=== PATIENT | female | born 1985 | race Caucasian/White ===

== ENCOUNTER 2019-02-05 13:29 | Inpatient (IN) | payer OTHER ==
[2019-02-05] MEDS ORDERED: LIDOCAINE 1% (MPF) 30 ML INJ INJ (14:00)
[2019-02-05] MEDS ORDERED: MISOPROSTOL 200 MCG TAB PR (14:00)
[2019-02-05] MEDS ORDERED: METHYLERGONOVINE 0.2 MG INJ IM (14:00)
[2019-02-05] MEDS ORDERED: CARBOPROST 250 MCG INJ IM (14:00)
[2019-02-05] MEDS ORDERED: OXYTOCIN 30 UNITS/LR 500 ML IV (14:00)
[2019-02-05] MEDS ORDERED: IBUPROFEN 600 MG TAB PO (14:00)
[2019-02-05 15:24] LABS: ADD MAN DIFF? NO
[2019-02-05 15:28] LABS: WHITE BLOOD COUNT 10.4 10^3/ul (4.8-10.8)
[2019-02-05 15:28] LABS: BASOPHIL # 0.1 10^3/ul (0.0-0.1); BASOPHILS % 0.5 % (0.0-2.0); EOSINOPHILS # 0.1 10^3/ul (0.0-0.5); EOSINOPHILS % 0.5 % (0.0-7.0); HEMATOCRIT 33.6 % (37.0-47.0); HEMOGLOBIN 10.7 g/dl (12.0-16.0); LYMPHOCYTES # 3.1 10^3/ul (0.8-2.9); LYMPHOCYTES % 29.7 % (15.0-51.0); MEAN CORPUSCULAR HEMOGLOBIN 26.5 pg (29.0-33.0); MEAN CORPUSCULAR HGB CONC 31.8 g/dl (32.0-37.0); MEAN CORPUSCULAR VOLUME 83.2 fl (82.0-101.0); MEAN PLATELET VOLUME 9.7 fl (7.4-10.4); MONOCYTE # 0.4 10^3/ul (0.3-0.9); MONOCYTES % 3.9 % (0.0-11.0); NEUTROPHIL # 6.7 10^3/ul (1.6-7.5); NEUTROPHILS % 64.7 % (39.0-77.0); PLATELET COUNT 206 10^3/UL (140-415); RED BLOOD COUNT 4.04 10^6/ul (4.20-5.40)
[2019-02-05 15:56] LABS: INR 0.92; PARTIAL THROMBOPLASTIN TIME 26.1 Sec (23.0-35.0); PROTIME 12.5 Sec (11.9-14.9)
[2019-02-05] MEDS: LACTATED RINGER'S 1,000 ML IV ×2 (17:01→21:05)
[2019-02-05 18:03] LABS: HEPATITIS B SURFACE ANTIGEN NEGATIVE (NEGATIVE)
[2019-02-05] MEDS ORDERED: MINERAL OIL LIGHT 10 ML VIAL TOP (20:30)
[2019-02-05] MEDS: OXYTOCIN 30 UNITS/LR 500 ML IV (22:24)
[2019-02-06] MEDS: RANITIDINE 150 MG TAB PO ×2 (04:30→20:39)
[2019-02-06] MEDS: LACTATED RINGER'S 1,000 ML IV ×3 (05:47→11:03)
[2019-02-06] MEDS ORDERED: ROPIVACAINE 0.2% 100 ML (08:12)
[2019-02-06] MEDS ORDERED: ONDANSETRON 4 MG INJ IV (08:30)
[2019-02-06] MEDS ORDERED: DIPHENHYDRAMINE 50 MG INJ IV (08:30)
[2019-02-06] MEDS ORDERED: NALOXONE (0.4 MG/ML) INJ IV (08:30)
[2019-02-06] MEDS: FENTAnyl 2MCG/ML-ROPIV 0.2% 100 ML BAG EPI (11:50)
[2019-02-06] MEDS ORDERED: DEXTROSE 5%-LR 1,000 ML IV (12:00)
[2019-02-06] MEDS: OXYTOCIN 30 UNITS/LR 500 ML IV ×3 (14:14→18:17)
[2019-02-06] MEDS: LANOLIN HPA 1 PKT TOP (16:21)
[2019-02-06] MEDS: WITCH HAZEL/GLYCERIN PAD PR (16:21)
[2019-02-06] MEDS: BENZOCAINE 20% 56 ML SPRAY TOP (16:21)
[2019-02-06] MEDS ORDERED: MISOPROSTOL 200 MCG TAB PR (16:30)
[2019-02-06] MEDS ORDERED: OXYTOCIN 30 UNITS/LR 500 ML IV (16:30)
[2019-02-06] MEDS ORDERED: METHYLERGONOVINE 0.2 MG INJ IM (16:30)
[2019-02-06] MEDS ORDERED: OXYCODONE/ASPIRIN (4.88/325) TAB PO ×2 (16:30)
[2019-02-06] MEDS ORDERED: ZOLPIDEM 5 MG TAB PO (16:30)
[2019-02-06] MEDS ORDERED: CARBOPROST 250 MCG INJ IM (16:30)
[2019-02-06] MEDS: IBUPROFEN 600 MG TAB PO ×2 (17:24→23:36)
[2019-02-06] MEDS ORDERED: AMPICILLIN 2 GM/NS (PMX) 100 ML IV (18:30)
[2019-02-06] MEDS: SENNA/DOCUSATE NA (8.6MG/50MG) TAB PO (20:39)
[2019-02-06] MEDS ORDERED: AMPICILLIN 1 GM/NS (PMX) 50 ML IV (22:30)
[2019-02-07] MEDS: IBUPROFEN 600 MG TAB PO ×3 (05:24→17:37)
[2019-02-07] MEDS: RANITIDINE 150 MG TAB PO ×2 (07:54→20:28)
[2019-02-07] MEDS: BENZOCAINE 20% 56 ML SPRAY TOP (07:54)
[2019-02-07] MEDS: WITCH HAZEL/GLYCERIN PAD PR (07:54)
[2019-02-07] MEDS: SENNA/DOCUSATE NA (8.6MG/50MG) TAB PO ×2 (07:59→20:28)
[2019-02-07 08:03] LABS: ADD MAN DIFF? NO
[2019-02-07 08:05] LABS: BASOPHIL # 0.1 10^3/ul (0.0-0.1); BASOPHILS % 0.3 % (0.0-2.0); EOSINOPHILS # 0.1 10^3/ul (0.0-0.5); EOSINOPHILS % 0.6 % (0.0-7.0); HEMATOCRIT 31.8 % (37.0-47.0); HEMOGLOBIN 10.1 g/dl (12.0-16.0); LYMPHOCYTES # 3.1 10^3/ul (0.8-2.9); LYMPHOCYTES % 19.5 % (15.0-51.0); MEAN CORPUSCULAR HEMOGLOBIN 26.3 pg (29.0-33.0); MEAN CORPUSCULAR HGB CONC 31.8 g/dl (32.0-37.0); MEAN CORPUSCULAR VOLUME 82.8 fl (82.0-101.0); MEAN PLATELET VOLUME 9.8 fl (7.4-10.4); MONOCYTE # 0.7 10^3/ul (0.3-0.9); MONOCYTES % 4.1 % (0.0-11.0); NEUTROPHIL # 11.7 10^3/ul (1.6-7.5); NEUTROPHILS % 74.9 % (39.0-77.0); PLATELET COUNT 176 10^3/UL (140-415); RED BLOOD COUNT 3.84 10^6/ul (4.20-5.40)
[2019-02-07 08:05] LABS: WHITE BLOOD COUNT 15.7 10^3/ul (4.8-10.8)
[2019-02-08] MEDS: IBUPROFEN 600 MG TAB PO ×3 (00:41→11:51)
[2019-02-08 06:44] LABS: ADD MAN DIFF? NO
[2019-02-08 06:48] LABS: WHITE BLOOD COUNT 11.6 10^3/ul (4.8-10.8)
[2019-02-08 06:48] LABS: BASOPHIL # 0.1 10^3/ul (0.0-0.1); BASOPHILS % 0.8 % (0.0-2.0); EOSINOPHILS # 0.3 10^3/ul (0.0-0.5); EOSINOPHILS % 2.3 % (0.0-7.0); HEMATOCRIT 32.6 % (37.0-47.0); HEMOGLOBIN 9.9 g/dl (12.0-16.0); LYMPHOCYTES # 3.5 10^3/ul (0.8-2.9); LYMPHOCYTES % 30.2 % (15.0-51.0); MEAN CORPUSCULAR HEMOGLOBIN 26.2 pg (29.0-33.0); MEAN CORPUSCULAR HGB CONC 30.4 g/dl (32.0-37.0); MEAN CORPUSCULAR VOLUME 86.2 fl (82.0-101.0); MEAN PLATELET VOLUME 9.5 fl (7.4-10.4); MONOCYTE # 0.6 10^3/ul (0.3-0.9); NEUTROPHIL # 7.1 10^3/ul (1.6-7.5); NEUTROPHILS % 60.8 % (39.0-77.0); PLATELET COUNT 203 10^3/UL (140-415); RED BLOOD COUNT 3.78 10^6/ul (4.20-5.40); RED CELL DISTRIBUTION WIDTH 13.2 % (11.5-14.5)
[2019-02-08] MEDS: SENNA/DOCUSATE NA (8.6MG/50MG) TAB PO (08:16)
[2019-02-08] MEDS: RANITIDINE 150 MG TAB PO (08:16)
[2019-02-08] MEDS: DIPHTH/TET/ACEL PERTUSS (ADULT) 0.5 ML VIAL IM* (09:00)
[2019-02-08 21:32] LABS: RAPID PLASMA REAGIN NONREACTIVE (NR)
== END 2019-02-08 12:46 | disposition home or self-care (01) | DRG 807 ==
LOC: L-D 13:29 → PP1 02-06 16:08
PROVIDERS: Specialist
PROC: 10E0XZZ Delivery of Products of Conception, External Approach (ICD-10-PCS; principal; 2019-02-06)
PROC: 10907ZC Drainage of Amniotic Fluid, Therapeutic from Products of Conception, Via Natural or Artificial Opening (ICD-10-PCS; 2019-02-06)
DX: O48.0 Post-term pregnancy (principal); Z37.0 Single live birth; Z3A.40 40 weeks gestation of pregnancy; O76 Abnormality in fetal heart rate and rhythm complicating labor and delivery
CPT/HCPCS: 62322; 76815; 85025; 85610; 85730; 86592; 86850; 86900; 86901; 87340; 99464